=== PATIENT | female | born 1995 | race Caucasian/White ===

== ENCOUNTER 2017-05-24 14:54 | Emergency (ER) | payer OTHER ==
--- NOTE | 2017-05-24 16:15 | ER Document Report ---
ED Medical Screen (RME) - General Chief Complaint: Abdominal Pain Stated Complaint: RASH Time Seen by Provider: 05/24/17 16:09 Mode of Arrival: Ambulatory Information source: Patient TRAVEL OUTSIDE OF THE [place] IN LAST 30 DAYS: No - HPI Patient complains to provider of: abd pain; rash Onset: Other - pt. states "i've been sick for 6 years" with recurrent rash, fatigue- now with abd pain and chronic constipation. Mom has taken pt. to several specialists - Related Data Allergies/Adverse Reactions: adhesive Allergy (Verified 05/24/17 15:05) Penicillins Allergy (Verified 05/24/17 15:05) Past Medical History Renal/ Medical History: Denies: Hx Peritoneal Dialysis Physical Exam - Vital signs Vitals: Temp Pulse Resp BP Pulse Ox 98.5 F 103 H 18 144/82 H 99 05/24/17 15:04 05/24/17 15:04 05/24/17 15:04 05/24/17 15:04 05/24/17 15:04 Course - Vital Signs Vital signs: Temp Pulse Resp BP Pulse Ox 98.5 F 103 H 18 144/82 H 99 05/24/17 15:04 05/24/17 15:04 05/24/17 15:04 05/24/17 15:04 05/24/17 15:04
[2017-05-24 16:47] LABS: ABSOLUTE BASOPHILS # (AUTO) 0.1 10^3/uL (0.0-0.2); ABSOLUTE EOSINOPHILS # (AUTO) 0.4 10^3/uL (0.0-0.6); ABSOLUTE LYMPHOCYTES (AUTO) 1.7 10^3/uL (0.5-4.7); ABSOLUTE MONOCYTES (AUTO) 0.9 10^3/uL (0.1-1.4); ABSOLUTE NEUT (AUTO) 10.5 10^3/uL (1.7-8.2); BASOPHILS % (AUTO) 0.5 % (0-2); EOSINOPHILS % (AUTO) 3.2 % (0-6); HEMATOCRIT 43.3 % (36.0-47.0); HGB HCT DIFFERENCE -1.3; LYMPHOCYTES % (AUTO) 12.3 % (13-45); MEAN CORPUSCULAR HEMOGLOBIN 28.5 pg (27.0-33.4); MEAN CORPUSCULAR HGB CONC 32.2 g/dL (32.0-36.0); MEAN CORPUSCULAR VOLUME 88 fl (80-97); MONOCYTES % (AUTO) 6.9 % (3-13); RED CELL DISTRIBUTION WIDTH 14.1 % (11.5-14.0); SEGMENTED NEUTROPHILS % (AUTO) 77.1 % (42-78); WHITE BLOOD COUNT 13.7 10^3/uL (4.0-10.5)
--- NOTE | 2017-05-24 17:01 | ER Document Report ---
ED General - General Chief Complaint: Abdominal Pain Stated Complaint: RASH Time Seen by Provider: 05/24/17 16:09 Mode of Arrival: Ambulatory Information source: Patient Notes: This is a 22-year-old female with a history of scoliosis and long history of joint, muscle and bone pain which which she has had evaluations from rheumatologists ([facility] and [place]) and neurologist and other states. Patient presents today with diffuse joint pain, intermittent abdominal pain and constipation, recurring rash requiring 4 trials of prednisone. Patient is presently off prednisone. Lungs: Zoloft, hydroxyzine, Zantac Allergies: None Primary CARE physician: [facility] TRAVEL OUTSIDE OF THE [place] IN LAST 30 DAYS: No - HPI Onset: Other - For 6 years Onset/Duration: Gradual Quality of pain: Dull Severity: Moderate Pain Level: 2 Associated symptoms: denies: Chills, Fever, Nausea, Shortness of breath Exacerbated by: Denies Relieved by: Denies Similar symptoms previously: Yes Recently seen / treated by doctor: Yes - Related Data Allergies/Adverse Reactions: adhesive Allergy (Verified 05/24/17 15:05) Penicillins Allergy (Verified 05/24/17 15:05) Past Medical History - General Information source: Patient - Social History Smoking Status: Never Smoker Cigarette use (# per day): No Chew tobacco use (# tins/day): No Frequency of alcohol use: None Drug Abuse: None Lives with: Family Family History: Reviewed & Not Pertinent Patient has suicidal ideation: No Patient has homicidal ideation: No - Past Medical History Cardiac Medical History: Reports: None Pulmonary Medical History: Reports: None EENT Medical History: Reports: None Neurological Medical History: Reports: Other - Neuropathic pain Endocrine Medical History: Reports: None Renal/ Medical History: Reports: None Malignancy Medical History: Reports: None GI Medical History: Reports: Other - Constipation Musculoskeltal Medical History: Reports Other - Diffuse myalgias and arthralgias Skin Medical History: Reports Other - Rash recurrent Psychiatric Medical History: Reports: None Traumatic Medical History: Reports: None Infectious Medical History: Reports: None Past Surgical History: Reports: Other - Surgery for scoliosis Review of Systems - Review of Systems Constitutional: Chills, Fever EENT: No symptoms reported Cardiovascular: No symptoms reported Respiratory: No symptoms reported Gastrointestinal: See HPI Genitourinary: No symptoms reported Female Genitourinary: No symptoms reported Musculoskeletal: No symptoms reported Skin: No symptoms reported Hematologic/Lymphatic: No symptoms reported Neurological/Psychological: No symptoms reported Physical Exam - Vital signs Vitals: Temp Pulse Resp BP Pulse Ox 98.5 F 103 H 18 144/82 H 99 05/24/17 15:04 05/24/17 15:04 05/24/17 15:04 05/24/17 15:04 05/24/17 15:04 Notes: Physical exam: GENERAL: 22-year-old female alert and oriented 3, no acute distress HEAD: Atraumatic, normocephalic. EYES: Pupils equal round and reactive to light, extraocular movements intact, sclera anicteric, conjunctiva are normal. ENT: TMs normal, nares patent, oropharynx clear without exudates. Moist mucous membranes. NECK: Normal range of motion, supple without lymphadenopathy or JVD. LUNGS: Breath sounds clear to auscultation bilaterally and equal. No wheezes rales or rhonchi. HEART: Regular rate and rhythm without murmurs, rubs or gallops. ABDOMEN: Soft, normoactive bowel sounds. No tenderness to palpation. No guarding, no rebound. No masses appreciated. EXTREMITIES: Normal range of motion, no pitting or edema. No clubbing or cyanosis. NEUROLOGICAL: Cranial nerves II through XII grossly intact. Normal speech, normal gait. PSYCH: Normal mood, normal affect. SKIN: Warm, Dry, normal turgor, no rashes or lesions noted. Course - Re-evaluation Re-evalutation: 05/24/17 20:18 I have had a Long conversation with the patient & mother. Patient's abdomen is soft and nontender does not have any evidence of acute peritonitis. She is afebrile and stable vital signs I see no evidence of sepsis. Currently, she does not have a rash. There is no swelling or obvious infection of any other joints. She has had a relative chronic illness that is been somewhat debilitating. She is new to the area and for the past year and does not really have significant follow-up. I have referred her to a wind site manager at [place]. I have given her a copy of today's labs. I have advised her that if the rash returns or if the abdominal pain gets more severe or if she feels like she is getting worse, she can return here to the ER - Vital Signs Vital signs: Temp Pulse Resp BP Pulse Ox 98.5 F 90 18 125/83 97 05/24/17 15:04 05/24/17 19:18 05/24/17 19:18 05/24/17 19:18 05/24/17 19:18 - Laboratory Result Diagrams: 05/24/17 16:25 05/24/17 16:25 Laboratory results interpreted by me: 05/24/17 16:25 WBC 13.7 H RDW 14.1 H Lymphocytes % 12.3 L Absolute Neutrophils 10.5 H Discharge - Discharge Clinical Impression: Diffuse arthralgia Condition: Stable Disposition: HOME, SELF-CARE Additional Instructions: I have left a copy of the labs on the discharge form. Your anemia studies were normal and your platelets were normal. The sugar, electrolytes and renal function studies as well as the thyroid test was normal. Ultimately, I think she should follow-up with a wind site manager given the constellation of symptoms. Given the extent of what she gone through, I think rheumatology and had a tertiary care center is appropriate. I have given the number for the rheumatology office at [facility] in [place]. Contact is below Require a referral form from your primary care doctor. Contact the Rheumatology Clinic [facility] [address] [place] [address] Because of pain, try the Neurontin. This is a medicine that is good for neuropathic pain and many musculoskeletal pain conditions. The initiating dose is 100 mg 2 times a day as needed. Prescriptions: Gabapentin [Neurontin 100 mg Capsule] 100 mg PO Q12 #60 capsule
[2017-05-24 17:07] LABS: ALANINE AMINOTRANSFERASE 38 U/L (9-52); ALBUMIN 4.5 g/dL (3.5-5.0); ALKALINE PHOSPHATASE 54 U/L (38-126); ANION GAP 11 (5-19); ASPARTATE AMINO TRANSFERASE 23 U/L (14-36); BILIRUBIN,DIRECT 0.2 mg/dL (0.0-0.4); BILIRUBIN,TOTAL 0.4 mg/dL (0.2-1.3); BLOOD UREA NITROGEN 12 mg/dL (7-20); CALCIUM 9.4 mg/dL (8.4-10.2); CARBON DIOXIDE 27 mmol/L (22-30); CHLORIDE 104 mmol/L (98-107); CREATININE RESULT 0.64 mg/dL (0.52-1.25); GLUCOSE 78 mg/dL (75-110); POTASSIUM 3.6 mmol/L (3.6-5.0); SODIUM 142.4 mmol/L (137-145); TOTAL PROTEIN 7.4 g/dL (6.3-8.2)
[2017-05-24 17:28] LABS: ERYTHROCYTE SEDIMENTATION RATE 5 mm/hr (0-20)
[2017-05-24 17:41] LABS: APPEARANCE,URINE CLEAR; BILIRUBIN,URINE NEGATIVE (NEGATIVE); GLUCOSE, URINE NEGATIVE (NEGATIVE); KETONES,URINE NEGATIVE (NEGATIVE); LEUKOCYTE ESTERASE,URINE NEGATIVE (NEGATIVE); NITRITE,URINE NEGATIVE (NEGATIVE); PROTEIN,URINE NEGATIVE (NEGATIVE); URINE SPECIFIC GRAVITY 1.014; UROBILINOGEN,URINE NEGATIVE mg/dL (<2.0)
[2017-05-24 17:55] LABS: URINE BARBITURATES SCREEN NEGATIVE; URINE METHADONE SCREEN NEGATIVE; URINE PHENCYCLIDINE SCREEN NEGATIVE
[2017-05-24 18:06] LABS: URINE OPIATES LOW NEGATIVE
[2017-05-24 19:19] VITALS: BP 125/83
== END 2017-05-24 19:18 | disposition home or self-care (01) ==
LOC: ER 14:54
DX: M25.50 Pain in unspecified joint (principal); K59.00 Constipation, unspecified; R10.9 Unspecified abdominal pain; Z88.0 Allergy status to penicillin; Z91.048 Other nonmedicinal substance allergy status
CPT/HCPCS: 36415; 80053; 80307; 81001; 81025; 83690; 84443; 85025; 85652; 86140; 99283

== ENCOUNTER 2019-01-02 23:25 | Emergency (ER) | payer OTHER ==
[2019-01-03] MEDS ORDERED: DEXAMETHASONE SOD PHOS INJ 10 MG/1 ML VIAL IM ONE (00:20)
[2019-01-03] MEDS ORDERED: EPINEPHRINE INJ/PF 1 MG/1 ML AMPULE IM ONE (00:20)
--- NOTE | 2019-01-03 00:24 | ER Document Report ---
ED General - General Chief Complaint: Allergic Reaction Stated Complaint: POSSIBLE ALLERGIC REACTION Time Seen by Provider: 01/02/19 23:56 Primary Care Provider: ADRIÁN NAVA MD [Primary Care Provider] - Follow up as needed Notes: Patient is a 23-year-old female with a past medical history of environmental allergies who presents with nasal congestion, conjunctivitis, eye irritation and rash to the face. States that started after rolling down her window upon driving from [place] to [place]. She states that she has lived in [place], in the past, had severe allergies while living here. Had no symptoms while residing in [place]. She has multiple known environmental allergies. She took Benadryl at home with some improvement of her symptoms but not complete resolution prompting her to come to the emergency department. She denies any difficulty breathing, difficulty swallowing, vomiting, diarrhea, abdominal cramping or syncope. She has never had anaphylaxis. Has not seen her primary care doctor regarding today's concerns. TRAVEL OUTSIDE OF THE [place] IN LAST 30 DAYS: No - Related Data Allergies/Adverse Reactions: adhesive Allergy (Verified 05/24/17 15:05) Penicillins Allergy (Verified 05/24/17 15:05) Past Medical History - General Information source: Patient - Social History Smoking Status: Never Smoker Frequency of alcohol use: None Drug Abuse: None Lives with: Family Family History: Reviewed & Not Pertinent Renal/ Medical History: Denies: Hx Peritoneal Dialysis Past Surgical History: Reports: Other - Surgery for scoliosis Review of Systems - Review of Systems Notes: Constitutional: Negative for fever. HENT: Negative for sore throat. Eyes: Negative for visual changes. Positive for eye irritation Cardiovascular: Negative for chest pain. Respiratory: Negative for shortness of breath. Gastrointestinal: Negative for abdominal pain, vomiting or diarrhea. Genitourinary: Negative for dysuria. Musculoskeletal: Negative for back pain. Skin: Positive for rash. Neurological: Negative for headaches, weakness or numbness. 10 point ROS negative except as marked above and in HPI. Physical Exam - Vital signs Vitals: Temp Resp BP Pulse Ox 98.7 F 16 132/79 H 98 01/02/19 23:32 01/02/19 23:32 01/02/19 23:32 01/02/19 23:32 Interpretation: Normal Notes: PHYSICAL EXAMINATION: GENERAL: Appears moderately uncomfortable but in no acute distress HEAD: Atraumatic, normocephalic. EYES: Pupils equal round and reactive to light, extraocular movements intact, sclera anicteric, conjunctiva are normal. ENT: Clear rhinorrhea, oropharynx clear without exudates, no oropharyngeal edema. Moist mucous membranes. NECK: Normal range of motion, supple without lymphadenopathy LUNGS: Breath sounds clear to auscultation bilaterally and equal. No wheezes rales or rhonchi. HEART: Regular rate and rhythm without murmurs ABDOMEN: Soft, nontender, normoactive bowel sounds. No guarding, no rebound. No masses appreciated. EXTREMITIES: Normal range of motion, no pitting or edema. No cyanosis. NEUROLOGICAL: No focal neurological deficits. Moves all extremities spontaneously and on command. PSYCH: Normal mood, normal affect. SKIN: Warm, Dry, normal turgor, facial rash over the bilateral cheeks, forehead and around the eyes with associated puffiness of the tissue around the eyes. Scattered urticaria over the chest Course - Re-evaluation Re-evalutation: 01/03/19 00:20 Patient presents with symptoms consistent with an allergic reaction without anaphylaxis. Only cutaneous involvement with multiple areas of hives. Vitals otherwise within normal limits at time of arrival. No respiratory, GI, cardiovascular, or oral pharyngeal symptoms. A trial of epinephrine for symptom resolution was offered to the patient. This did resolve the majority of the patient's hives. Will recommend ongoing antihistamine therapy as an outpatient. At this time will discharge with return precautions and follow-up recommendations. Verbal discharge instructions given a the bedside and o pportunity for questions given. Medication warnings reviewed. Patient is in agreement with this plan and has verbalized understanding of return precautions and the need for primary care follow-up in the next 24-72 hours. - Vital Signs Vital signs: Temp Pulse Resp BP Pulse Ox 98.7 F 16 132/79 H 98 01/02/19 23:32 01/02/19 23:32 01/02/19 23:32 01/02/19 23:32 Discharge - Discharge Clinical Impression: Facial rash Allergic reaction Qualifiers: Encounter type: initial encounter Qualified Code(s): T78.40XA - Allergy, unspecified, initial encounter Conjunctivitis Qualifiers: Conjunctivitis type: acute Acute conjunctivitis type: atopic Laterality: bilateral Qualified Code(s): H10.13 - Acute atopic conjunctivitis, bilateral Condition: Good Disposition: HOME, SELF-CARE Additional Instructions: You were seen today for a mild allergic reaction. You can continue to take cetirizine 10mg up to 3 times daily as needed for itching. IF YOU DEVELOP DIFFICULTY BREATHING, SPREADING OF HIVES, VOMITING, LIGHTHEADEDNESS, IMMEDIATELY AND CALL 911. Please follow-up with your primary care physician in the next 1-2 days. Referrals: ADRIÁN NAVA MD [Primary Care Provider] - Follow up as needed
[2019-01-03 01:12] VITALS: BP 139/89
== END 2019-01-03 01:10 | disposition home or self-care (01) ==
LOC: ER 23:25
DX: L50.0 Allergic urticaria (principal); H10.13 Acute atopic conjunctivitis, bilateral; R09.81 Nasal congestion; J34.89 Other specified disorders of nose and nasal sinuses; Z91.048 Other nonmedicinal substance allergy status; Z88.0 Allergy status to penicillin
CPT/HCPCS: 99283; 96372; J0171; J1100